=== PATIENT | male | born 1945 | race Caucasian/White ===

== ENCOUNTER 2016-12-11 06:05 | Inpatient (IN) | payer MEDICARE, BC ==
[2016-12-11] MEDS ORDERED: Lactated Ringers 1,000 ML IV SCH (06:30)
[2016-12-11] MEDS ORDERED: Povidone-Iodine 10% Soln 118.25 ML Bottle ONE (06:53)
[2016-12-11] MEDS ORDERED: Lidocaine 0.5% 50 ML SDV ONE (07:15)
[2016-12-11] MEDS ORDERED: Lidocaine 1% PF 2 ML SDV INJECT ONE (07:27)
[2016-12-11] MEDS: Gentamicin 40 MG/ML 2 ML Vial ONE ×2 (07:52→09:40)
[2016-12-11] MEDS ORDERED: ceFAZolin 2 GM in Premix Bag 1 BAG IV ONE (08:00)
[2016-12-11] MEDS ORDERED: Ketamine 500 MG/5 ML MDV IV ONE (08:30)
[2016-12-11] MEDS ORDERED: fentaNYL 100 MCG/2 ML SDV ONE (08:39)
[2016-12-11] MEDS ORDERED: Midazolam 1 MG/ML 2 ML SDV ONE (08:39)
[2016-12-11] MEDS ORDERED: Propofol 200 MG/20 ML SDV ONE ×5 (08:39→10:51)
[2016-12-11] MEDS: Tranexamic Acid 1,000 MG in Sodium Chloride 0.9% 50 ML IV SCH ×2 (09:22→12:22)
[2016-12-11] MEDS ORDERED: Lactated Ringers 1,000 ML ONE (10:33)
[2016-12-11] MEDS ORDERED: Ropivacaine 49.25 ML, Ketorolac 30 MG, EPINEPHrine 0.5 MG, cloNIDine 80 MCG, Sodium Chl... INJECT SCH ×5 (11:30)
[2016-12-11] MEDS ORDERED: Docusate Sodium 100 MG Cap PO PRN (12:01)
[2016-12-11] MEDS ORDERED: Bisacodyl 5 MG Tab PO PRN (12:01)
[2016-12-11] MEDS ORDERED: Naloxone 0.4 MG/ML SDV IVPUSH PRN (12:01)
[2016-12-11] MEDS ORDERED: Ketorolac 30 MG/ML SDV IVPUSH PRN (12:01)
[2016-12-11] MEDS ORDERED: traMADol 50 MG Tab PO PRN (12:01)
[2016-12-11] MEDS ORDERED: Ondansetron 4 MG/2 ML SDV IVPUSH PRN (12:01)
[2016-12-11] MEDS ORDERED: Magnesium Hydroxide 400 MG/5 ML Susp 30 ML Cup PO PRN (12:01)
[2016-12-11] MEDS ORDERED: Aluminum Hydroxide/Magnesium Hydroxide/Simethicone Susp 30 ML Cup PO PRN (12:01)
[2016-12-11] MEDS ORDERED: Zolpidem 5 MG Tab PO PRN (12:01)
[2016-12-11] MEDS ORDERED: Sennosides 8.6 MG Tab PO PRN (12:01)
[2016-12-11] MEDS ORDERED: Morphine 2 MG/ML Syringe IVPUSH PRN (12:01)
[2016-12-11] MEDS ORDERED: diphenhydrAMINE 50 MG/ML SDV IVPUSH PRN (12:01)
--- NOTE | 2016-12-11 12:50 | CR ---
Right knee medial compartment hemiarthroplasty. Negative for post surgical purposes.
[2016-12-11] MEDS ORDERED: ceFAZolin 2 GM in Premix Bag 1 BAG IV SCH ×2 (13:00→14:00)
[2016-12-11] MEDS: Acetaminophen/oxyCODONE 325-5 MG Tab PO PRN ×2 (14:19→21:16)
[2016-12-11] MEDS ORDERED: Non-Formulary Medication 1 Each (Omeprazole [Omeprazole] 40 MG) PO PRN (15:08)
[2016-12-11] MEDS ORDERED: Albuterol 8 GM Inhaler INH PRN (15:08)
[2016-12-11] MEDS ORDERED: 50% Dextrose in Water 50 ML Syringe IV PRN (15:10)
[2016-12-11] MEDS ORDERED: Glucose Gel 15 GM in 37.5 GM Tube PO PRN (15:10)
--- NOTE | 2016-12-11 15:18 | PCM.CONS ---
H&P History of Present Illness - General Date of Service: 12/11/16 Admit Problem/Dx: Admission Diagnosis/Problem Admission Diagnosis/Problem Osteoarthritis Source of Information: Patient, Family, Old Records, RN Notes Reviewed History Limitations: Reports: No Limitations - History of Present Illness Initial Comments - Free Text/Narative: Brennen is a 71-year-old gentleman who I been asked to see today by Dr. Roe Rodgers for assistance in management following a right partial knee replacement surgery done earlier today. Patient has been having ongoing difficulty with pain in his right knee and on evaluation was found to have severe medial compartment arthritis. He's done well during the initial postoperative period, denies chest pain or pressure, dyspnea, nausea and vomiting and reports that his pain control thus far has been adequate. Right Knee Pain Score (Numeric/FACES): 2 - Related Data Allergies/Adverse Reactions: Allergies Allergy/AdvReac Type Severity Reaction Status Date / Time NOE Inhibitors Allergy Cough Verified 12/11/16 06:31 lisinopril Allergy Cough Verified 12/11/16 06:31 carvedilol AdvReac Diarrhea Verified 12/11/16 06:31 Home Medications: Home Meds Albuterol [Proair HFA] 2 puff INH Q4H PRN 12/09/14 [History] Glimepiride 4 mg PO BID 12/09/14 [History] Valsartan [Diovan] 80 mg PO DAILY 12/09/14 [History] metFORMIN [Glucophage] 1,000 mg PO BID 12/09/14 [History] Cinnamon 1,000 mg PO DAILY 01/31/15 [History] Milk Thistle 175 mg PO BID 01/31/15 [History] Aspirin [Adult Low Dose Aspirin EC] 81 mg PO DAILY 12/06/16 [History] Metoprolol Succinate 25 mg PO DAILY 12/06/16 [History] Pravastatin [Pravachol] 40 mg PO BEDTIME 12/06/16 [History] Omeprazole 40 mg PO DAILY PRN 12/11/16 [History] Past Medical History HEENT History: Reports: Cataract Cardiovascular History: Reports: High Cholesterol, Hypertension Respiratory History: Reports: Bronchitis, Recurrent, Sleep Apnea Other Respiratory History: uses inhaler periodically throughout the winter Gastrointestinal History: Reports: PUD Genitourinary History: Reports: Renal Calculus Other Genitourinary History: December 13 2014 had a kidney stone removed and stent put in for th 10mm stone to be lithotripsy to be done in [place] 02/08 Musculoskeletal History: Reports: Arthritis, Gout Other Musculoskeletal History: seeing ortho this week for surgical consult Endocrine/Metabolic History: Reports: Diabetes, Type II, Obesity/BMI 30+ Hematologic History: Reports: Blood Transfusion(s) Dermatologic History: Reports: Other (See Below) - Infectious Disease History Infectious Disease History: Reports: Measles - Past Surgical History HEENT Surgical History: Reports: Cataract Surgery Cardiovascular Surgical History: Reports: Percutaneous Transluminal Angioplasty Respiratory Surgical History: Reports: None GI Surgical History: Reports: Appendectomy, Colonoscopy Male Surgical History: Reports: Kidney Stone Extraction, Ureteral Stent Other Male Surgeries/Procedures: kidney stone removed 12/2014 Endocrine Surgical History: Reports: None Musculoskeletal Surgical History: Reports: Knee Replacement Dermatological Surgical History: Reports: None Social & Family History - Tobacco Use Smoking Status *Q: Former Smoker Years of Tobacco use: 15 Used Tobacco, but Quit: Yes Month Tobacco Last Used: July Second Hand Smoke Exposure: No - Caffeine Use Caffeine Use: Reports: Coffee - Alcohol Use Days Per Week of Alcohol Use: 4 Number of Drinks Per Day: 5 Total Drinks Per Week: 20 Date of Last Drink: 12/08/16 Time of Last Drink: 18:00 - Recreational Drug Use Recreational Drug Use: No H&P Review of Systems - Review of Systems: Review Of Systems: See Below General: Reports: No Symptoms Pulmonary: Reports: No Symptoms Cardiovascular: Reports: No Symptoms Gastrointestinal: Reports: No Symptoms Genitourinary: Reports: No Symptoms Musculoskeletal: Reports: Joint Pain Exam - Exam Exam: See Below - Vital Signs Vital Signs: Last Vital Signs Temp 98.4 F 12/11/16 13:15 Pulse 61 12/11/16 13:32 Resp 12 12/11/16 13:32 BP 146/77 H 12/11/16 13:32 Pulse Ox 99 12/11/16 13:32 Weight: 259 lb 14.412 oz - Exam Quality Assessment: DVT Prophylaxis General: Alert, Oriented, Cooperative, Mild Distress Neck: Supple, Trachea Midline, +2 Carotid Pulse wo Bruit Lungs: Clear to Auscultation, Normal Respiratory Effort Cardiovascular: Regular Rate, Regular Rhythm, Normal S1, Normal S2 Abdomen: Normal Bowel Sounds, Soft Extremities: Normal Pulses. No: Edema Consult PN Assessment/Plan Procedures: Procedures ASSAY OF AMYLASE (12/09/14) ASSAY OF HAPTOGLOBIN QUANT (02/03/15) ASSAY OF LIPASE (12/09/14) ASSAY OF SERUM POTASSIUM (02/03/15) BLOOD TRANSFUSION SERVICE (02/03/15) BLOOD TYPING SEROLOGIC ABO (11/29/16) BLOOD TYPING SEROLOGIC RH(D) (11/29/16) COMPATIBILITY TEST ANTIGLOB (02/03/15) COMPATIBILITY TEST SPIN (02/03/15) COMPLETE CBC AUTOMATED (11/29/16) COMPLETE CBC W/AUTO DIFF WBC (02/03/15) COMPREHEN METABOLIC PANEL (11/29/16) RAYMOND TEST DIRECT (02/03/15) CT ABD & PELVIS W/O CONTRAST (12/09/14) CT THORAX W/O DYE (03/15/15) CULTURE OTHR SPECIMN AEROBIC (11/29/16) EMERGENCY DEPT VISIT (02/03/15) EMERGENCY DEPT VISIT (02/03/15) EMERGENCY DEPT VISIT (12/13/14) GAIT TRAINING THERAPY (02/09/15) GLUCOSE BLOOD TEST (02/03/15) HEMOGLOBIN (02/03/15) HOT OR COLD PACKS THERAPY (03/07/15) LACTATE (LD) (LDH) ENZYME (02/03/15) MANUAL THERAPY 1/> REGIONS (03/07/15) METABOLIC PANEL TOTAL CA (02/03/15) POLYSOM 6/>YRS CPAP 4/> PARM (04/11/15) PT EVALUATION (02/09/15) RBC ANTIBODY SCREEN (11/29/16) ROUTINE VENIPUNCTURE (11/29/16) THER/PROPH/DIAG INJ SC/IM (12/09/14) THER/PROPH/DIAG IV INF ADDON (12/09/14) THER/PROPH/DIAG IV INF INIT (12/09/14) THERAPEUTIC ACTIVITIES (03/07/15) THERAPEUTIC EXERCISES (03/07/15) TISSUE EXAM BY PATHOLOGIST (02/03/15) TTE W/DOPPLER COMPLETE (12/10/13) TX/PRO/DX INJ NEW DRUG ADDON (12/09/14) URINALYSIS AUTO W/SCOPE (11/29/16) URINE CULTURE/COLONY COUNT (02/03/15) X-RAY EXAM OF KNEE 3 (11/29/16) Problem List Initiated/Reviewed/Updated: Yes My Orders last 24 hours: My Active Orders 12/11/16 15:08 Albuterol [Ventolin HFA] 2 puff INH Q4H PRN Omeprazole [Omeprazole] 40 mg PO DAILY PRN 12/11/16 15:10 Blood Glucose Check, Bedside [RC] QIDACANDBED Communication Order [RC] ASDIRECTED Diabetes Education [RC] Click to Edit Notify Provider [RC] PRN Dextrose 50% in Water 50 ml IV ONETIME PRN Dextrose [Glutose 15] 15 gm PO ONETIME PRN 12/11/16 15:15 Insulin Aspart [NovoLOG] See Protocol SUBCUT ASDIRECTED 12/11/16 16:30 GLUCOSE POC LAB TO COLLECT [POC] QIDACANDBED 12/11/16 21:00 GLUCOSE POC LAB TO COLLECT [POC] QIDACANDBED Glimepiride [Glimepiride] 4 mg PO BID Pravastatin [Pravachol] 40 mg PO BEDTIME metFORMIN [Glucophage] 1,000 mg PO BID 12/12/16 07:30 GLUCOSE POC LAB TO COLLECT [POC] QIDACANDBED 12/12/16 09:00 Metoprolol Succinate [Toprol XL] 25 mg PO DAILY Valsartan [Diovan] 80 mg PO DAILY 12/12/16 11:30 GLUCOSE POC LAB TO COLLECT [POC] QIDACANDBED 12/12/16 16:30 GLUCOSE POC LAB TO COLLECT [POC] QIDACANDBED 12/12/16 21:00 GLUCOSE POC LAB TO COLLECT [POC] QIDACANDBED 12/13/16 07:30 GLUCOSE POC LAB TO COLLECT [POC] QIDACANDBED 12/13/16 11:30 GLUCOSE POC LAB TO COLLECT [POC] QIDACANDBED 12/13/16 16:30 GLUCOSE POC LAB TO COLLECT [POC] QIDACANDBED 12/13/16 21:00 GLUCOSE POC LAB TO COLLECT [POC] QIDACANDBED 12/14/16 07:30 GLUCOSE POC LAB TO COLLECT [POC] QIDACANDBED 12/14/16 11:30 GLUCOSE POC LAB TO COLLECT [POC] QIDACANDBED 12/14/16 16:30 GLUCOSE POC LAB TO COLLECT [POC] QIDACANDBED 12/14/16 21:00 GLUCOSE POC LAB TO COLLECT [POC] QIDACANDBED 12/15/16 07:30 GLUCOSE POC LAB TO COLLECT [POC] QIDACANDBED 12/15/16 11:30 GLUCOSE POC LAB TO COLLECT [POC] QIDACANDBED 12/15/16 16:30 GLUCOSE POC LAB TO COLLECT [POC] QIDACANDBED 12/15/16 21:00 GLUCOSE POC LAB TO COLLECT [POC] QIDACANDBED 12/16/16 07:30 GLUCOSE POC LAB TO COLLECT [POC] QIDACANDBED 12/16/16 11:30 GLUCOSE POC LAB TO COLLECT [POC] QIDACANDBED 12/16/16 16:30 GLUCOSE POC LAB TO COLLECT [POC] QIDACANDBED 12/16/16 21:00 GLUCOSE POC LAB TO COLLECT [POC] QIDACANDBED 12/17/16 07:30 GLUCOSE POC LAB TO COLLECT [POC] QIDACANDBED 12/17/16 11:30 GLUCOSE POC LAB TO COLLECT [POC] QIDACANDBED 12/17/16 16:30 GLUCOSE POC LAB TO COLLECT [POC] QIDACANDBED 12/17/16 21:00 GLUCOSE POC LAB TO COLLECT [POC] QIDACANDBED 12/18/16 07:30 GLUCOSE POC LAB TO COLLECT [POC] QIDACANDBED 12/18/16 11:30 GLUCOSE POC LAB TO COLLECT [POC] QIDACANDBED 12/18/16 16:30 GLUCOSE POC LAB TO COLLECT [POC] QIDACANDBED 12/18/16 21:00 GLUCOSE POC LAB TO COLLECT [POC] QIDACANDBED 12/19/16 07:30 GLUCOSE POC LAB TO COLLECT [POC] QIDACANDBED 12/19/16 11:30 GLUCOSE POC LAB TO COLLECT [POC] QIDACANDBED 12/19/16 16:30 GLUCOSE POC LAB TO COLLECT [POC] QIDACANDBED 12/19/16 21:00 GLUCOSE POC LAB TO COLLECT [POC] QIDACANDBED 12/20/16 07:30 GLUCOSE POC LAB TO COLLECT [POC] QIDACANDBED 12/20/16 11:30 GLUCOSE POC LAB TO COLLECT [POC] QIDACANDBED 12/20/16 16:30 GLUCOSE POC LAB TO COLLECT [POC] QIDACANDBED 12/20/16 21:00 GLUCOSE POC LAB TO COLLECT [POC] QIDACANDBED 12/21/16 07:30 GLUCOSE POC LAB TO COLLECT [POC] QIDACANDBED 12/21/16 11:30 GLUCOSE POC LAB TO COLLECT [POC] QIDACANDBED 12/21/16 16:30 GLUCOSE POC LAB TO COLLECT [POC] QIDACANDBED 12/21/16 21:00 GLUCOSE POC LAB TO COLLECT [POC] QIDACANDBED 12/22/16 07:30 GLUCOSE POC LAB TO COLLECT [POC] QIDACANDBED 12/22/16 11:30 GLUCOSE POC LAB TO COLLECT [POC] QIDACANDBED Plan: ASSESSMENT AND RECOMMENDATIONS STATUS POST RIGHT PARTIAL KNEE REPLACEMENT-stable and doing well during the initial postoperative period -Postoperative care per orthopedic service MILD CONGESTIVE HEART FAILURE-stable with no evidence of significant cardiac compromise -Limited IV fluids as possible -Continue outpatient medical regimen TYPE 2 DIABETES MELLITUS -4 times a day glucometers -Continue outpatient medical regimen -Low-dose sliding scale NovoLog HYPERTENSION -Monitor blood pressure during hospital stay -Continue outpatient medical regimen OBSTRUCTIVE SLEEP APNEA -Use CPAP from home while hospitalized Requesting Provider: MONIQUE Date Consult Requested: 12/11/16 Reason for Consult: Postoperative medical management Patient History Reviewed: Yes Admission H&P Reviewed: Yes
[2016-12-11] MEDS: ceFAZolin 2 GM in Sodium Chloride 0.9% 50 ML IV SCH (15:43)
[2016-12-11] MEDS ORDERED: Pantoprazole 40 MG Tab.CR PO PRN (15:51)
[2016-12-11] MEDS: Insulin Aspart 100 Units/ML 3 ML Pen SUBCUT SCH ×2 (16:38→21:17)
[2016-12-11] MEDS: metFORMIN 500 MG Tab PO SCH (16:38)
--- NOTE | 2016-12-11 18:30 | OR ---
DATE OF PROCEDURE: 12/11/2016 PREOPERATIVE DIAGNOSIS: Right knee primary osteoarthritis. POSTOPERATIVE DIAGNOSIS: Right knee primary osteoarthritis. PROCEDURE: Right knee unicondylar medial knee arthroplasty. CORPORATE CLAIMS EXAMINER: CHELSEA Grigsby ANESTHESIA: Spinal plus conscious sedation. FLUID: Lactated Ringer solution. ESTIMATED BLOOD LOSS: 150 mL. COMPLICATIONS: None. SPECIMEN: None. DISCHARGE DISPOSITION: Stable to PACU. HISTORY AND INDICATIONS FOR THE PROCEDURE: The patient was seen preoperatively in the clinic. He had failed nonoperative treatment. Preoperative imaging confirmed the above- mentioned diagnosis. Risks and benefits of the procedure were explained to the patient. Informed consent was obtained. DETAILS OF PROCEDURE: The patient was seen preoperatively by myself and the anesthesia staff in the preoperative holding area, where the operative site was marked. He was brought to the operative suite by the anesthesia staff where spinal anesthesia and conscious sedation was administered. All extremities found to be well padded. A well-padded tourniquet was placed on his right thigh and his right thigh was placed up in the hip mcgee. He had padding under his left with adequate flexion for his hip flexors on the left. The right lower extremity was then prepped and draped in a sterile manner. Time-out was called identifying correct patient, correct procedure, the correct site, and antibiotics had been with an appropriate period of time. The right lower extremity was then exsanguinated and tourniquet was raised to 300 mmHg for 91 minutes and let down after cementing of the femoral component. The skin incision was made from the vastus medialis to the superior pole of the medial aspect of the patella. Linearly down just below the level of the joint line between the joint line and the tibial tubercle medially, a parapatellar arthrotomy was made in the same fashion. Bleeding was controlled with Bovie electrocautery as well as an Aquamant[employer] unit. DLPs were used for traction. The infrapatellar fat pad was removed. A part of the medial and anterior portion of the medial meniscus was then removed. The medial tibial plateau was visualized using Bovie electrocautery and retractors. Osteophytes were removed from the proximal tibia as well as osteotome was used in the medial and lateral aspect of the intercondylar notch to remove any other osteophytes to prevent impingement. After this was performed, our cutting guide was then applied to the leg, which was an extramedullary guide with the clamp. This was then pinned in place. We then made our vertical cut. Just at the medial aspect of the anterior cruciate ligament insertion, I did measure with the hook how far back to be drill with saw and then marked this on the saw blade. I then thought that my horizontal cut was too deep, I placed a 2-mm chamfer and then made the cut as well. After this had been performed, please note that there was a #1 spoon used during placement of the cutting block. I then removed the cutting block, I felt that my cut was slightly too far lateral on the posterior aspect and then even this measured to be an F tibia. Posterior and anterior cruciate ligaments were visualized, intact, and had good stability throughout range of motion. We then used our drill to drill the intramedullary johnnie in the distal femur. I then drilled and placed my intramedullary johnnie. This was 1 cm anterior to the intercondylar notch on its medial aspect. After that johnnie had been placed, I then marked the midline of the medial femoral condyle and then placed my femoral guide attaching into the johnnie. I then drilled my 4 mm and 6 mm holes. I then removed this, I then applied an 0 spigot and then reamed with an 0 spigot. I then checked my flexion and extension gaps with my tibial trial in place, with the femoral component in place. This showed a 4 mm in flexion and I was unable to get a guide and 20 degrees of flexion. I then used a number #4 spigot, which again was a little bit tight, so I touched it about half way down with a #5 spigot. After removing some osteophytes on the inferior aspect of the femur, we then subtle on this size. I then prepared the tibia by placing the hook in the back and then applying the tibial base plate with the guide from my sawtooth, a cutter for the tibia. I then used the saw and then removed that guide and then removed any extra bone. I then applied my tibial cutting guide and removed the posterior aspect of the femur as well as reaming the anterior femur, I did remove a small portion of bone on the superior aspect that had been reamed, the anterior aspect had been reamed, and this was to allow for better tracking. We then inserted all of our trial components and I felt that a 4 fit at that time. We then removed all components and then copiously irrigated with saline. I removed more of the medial meniscus at that time. I dried our surfaces and then I applied our tibial F base plate with cement taking care to go from posterior to anterior in my tamping motion and then removed any extra cement. We inserted a femoral trial component and then a #4 insert and then allowed the cement to dry in approximately 30 degrees of flexion with force. After drying, we then removed any extra cement and copiously irrigated with saline. I then drilled holes again in the femoral cortex and then applied cement and then applied our femoral component again allowing it to dry. We then let down the tourniquet at 91 minutes. I then copiously irrigated with saline. We removed any extra cement and then we inserted a 4 trial, which provided excellent stability. We then copiously irrigated with saline and then inserted a #4 mobile bearing tibial implant. This provided excellent stability throughout and full range of motion. Anterior and posterior cruciate ligament stability was intact and they were visualized to be in good condition. We then irrigated again, we applied our local anesthetic, and then closed with one #5 Ethibond interrupted followed by a watertight closure with 0 [id number] sutures followed by 2-0 Vicryl subcutaneous sutures, followed by skin ilia, followed by sterile dressing. The patient was then transferred to hospital bed and taken to the PACU in stable condition. Onofre Rodgers DO /[id number]
[2016-12-11] MEDS ORDERED: Pravastatin 20 MG Tab PO SCH (21:00)
[2016-12-11] MEDS ORDERED: Aspirin 325 MG Tab.EC PO SCH (21:00)
[2016-12-11] MEDS ORDERED: Glimepiride 2 MG Tab PO SCH (21:00)
[2016-12-11] MEDS ORDERED: Non-Formulary Medication 1 Each (Metformin [Glucophage] 1,000 MG) PO SCH (21:00)
[2016-12-11] MEDS ORDERED: Non-Formulary Medication 1 Each (Pravastatin [Pravachol] 40 MG) PO SCH (21:00)
[2016-12-11] MEDS ORDERED: Non-Formulary Medication 1 Each (Glimepiride [Glimepiride] 4 MG) PO SCH (21:00)
[2016-12-12] MEDS: ceFAZolin 2 GM in Sodium Chloride 0.9% 50 ML IV SCH ×2 (00:10→08:24)
[2016-12-12] MEDS: Sodium Chloride 0.9% 10 ML Syringe FLUSH SCH ×2 (00:18→08:22)
[2016-12-12] MEDS: Acetaminophen/oxyCODONE 325-5 MG Tab PO PRN ×3 (01:05→10:49)
[2016-12-12 06:55] VITALS: BP 146/80
[2016-12-12] MEDS ORDERED: Glimepiride 2 MG Tab PO SCH (08:00)
[2016-12-12] MEDS: metFORMIN 500 MG Tab PO SCH (08:36)
[2016-12-12] MEDS ORDERED: Metoprolol Succinate 25 MG Tab.ER PO SCH (09:00)
[2016-12-12] MEDS ORDERED: Aspirin 325 MG Tab.EC PO SCH (09:00)
[2016-12-12] MEDS ORDERED: Non-Formulary Medication 1 Each (Valsartan [Diovan] 80 MG) PO SCH (09:00)
--- NOTE | 2016-12-12 10:04 | PCM.DCSUM1 ---
Discharge Summary - Hospital Course Free Text/Narrative:: Brennen is a pleasant 71 year old male who is status pod 1 of a right partial knee arthoroplasty. He is doing well. He denies any issues at this time. He is working with PT/OT and is doing well. His pain is controlled with oral pain medication. He is requesting to go home. - Discharge Data Discharge Date: 12/12/16 Discharge Disposition: Home, Self-Care 01 Condition: Good - Discharge Diagnosis/Problem(s) (1) Status post total right knee replacement SNOMED Code(s): 7463042920861 ICD Code: Z96.651 - PRESENCE OF RIGHT ARTIFICIAL KNEE JOINT Status: Acute Current Visit: Yes - Patient Summary/Data Consults: Consultations 12/11/16 12:01 Consult to Physician [CONS] Routine Consulting Provider: Angus Humphreys Call Completed to Consulting Physician: Yes OT Evaluation and Treatment [CONS] Routine Please Evaluate and Treat. OT Reason for Consult: Strengthening This query below is only for informational purposes and is not editable. PT Evaluation and Treatment [CONS] Routine Please Evaluate and Treat. PT Reason for Consult: Strengthening This query below is only for informational purposes and is not editable. - Patient Instructions Diet: Heart Healthy Diet Activity: Apply Ice, As Tolerated Driving: Do Not Drive Showering/Bathing: May Shower Wound/Incision Care: Keep Operative Site/Wound Site Clean and Dry, Change Dressing Daily Notify Provider of: Fever, Increased Pain, Swelling and Redness - Discharge Plan Prescriptions/Med Rec: Acetaminophen/oxyCODONE [Percocet 325-5 MG] 1 tab PO Q4H PRN #120 tablet PRN Reason: Pain Aspirin [Ecotrin] 325 mg PO BID #60 tab.ec Home Medications: Home Meds Albuterol [Proair HFA] 2 puff INH Q4H PRN 12/09/14 [History] Glimepiride 4 mg PO DAILY 12/09/14 [History] Valsartan [Diovan] 80 mg PO DAILY 12/09/14 [History] metFORMIN [Glucophage] 1,000 mg PO BID 12/09/14 [History] Cinnamon 1,000 mg PO DAILY 01/31/15 [History] Milk Thistle 175 mg PO BID 01/31/15 [History] Aspirin [Adult Low Dose Aspirin EC] 81 mg PO DAILY 12/06/16 [History] Metoprolol Succinate 25 mg PO DAILY 12/06/16 [History] Pravastatin [Pravachol] 40 mg PO BEDTIME 12/06/16 [History] Omeprazole 40 mg PO DAILY PRN 12/11/16 [History] Acetaminophen/oxyCODONE [Percocet 325-5 MG] 1 tab PO Q4H PRN #120 tablet [Rx] Aspirin [Ecotrin] 325 mg PO BID #60 tab.ec 12/12/16 [Rx] Referrals: Akiko Dhillon, POWER SYSTEMS ENGINEER [Nurse Practitioner] - (2 week recheck) - Discharge Summary/Plan Comment DC Time >30 min.: Yes Discharge Summary/Plan Comment: The patient will be discharged at this time. He is to follow up with ortho in 2 weeks. He is to continue with PT/OT. I prescribed him Percocet and ASA. He is to call at any time he has any other issues. - Patient Data Vitals - Most Recent: Last Vital Signs Temp 36.8 C 12/12/16 06:54 Pulse 75 12/12/16 08:36 Resp 16 12/12/16 06:54 BP 146/80 H 12/12/16 08:36 Pulse Ox 93 L 12/12/16 07:29 Weight - Most Recent: 259 lb 14.412 oz I&O - Last 24 hours: Intake & Output 12/11/16 12/12/16 12/12/16 22:59 06:59 14:59 Intake Total 1370 1050 290 Output Total 250 900 Balance 1120 150 290 Lab Results - Last 24 hrs: Laboratory Results - last 24 hr 12/12/16 12/12/16 Range/Units 05:47 05:47 WBC 11.1 H (4.5-11.0) K/uL RBC 3.44 L (4.30-5.90) M/uL Hgb 11.3 L (12.0-15.0) g/dL Hct 34.4 L (40.0-54.0) % MCV 100 H (80-98) fL MCH 33 H (27-31) pg MCHC 33 (32-36) % Plt Count 162 (150-400) K/uL Neut % (Auto) 65 (36-66) % Lymph % (Auto) 29 (24-44) % [place] % (Auto) 5 (2-6) % Eos % (Auto) 1 L (2-4) % Baso % (Auto) 0 (0-1) % Sodium 134 L (140-148) mmol/L Potassium 5.0 (3.6-5.2) mmol/L Chloride 104 (100-108) mmol/L Carbon Dioxide 24 (21-32) mmol/L Anion Gap 11.0 (5.0-14.0) mmol/L BUN 19 H (7-18) mg/dL Creatinine 1.3 (0.8-1.3) mg/dL Est Cr Clr Drug Dosing TNP Estimated GFR (MDRD) 54 L (>60) Glucose 155 H (74-106) mg/dL Calcium 7.5 L (8.5-10.1) mg/dL Total Bilirubin 0.4 (0.2-1.0) mg/dL AST 11 L (15-37) U/L ALT 11 L (12-78) U/L Alkaline Phosphatase 51 (46-116) U/L Total Protein 6.2 L (6.4-8.2) g/dL Albumin 3.0 L (3.4-5.0) g/dL Globulin 3.2 (2.3-3.5) g/dL Albumin/Globulin Ratio 0.9 L (1.2-2.2) Med Orders - Current: Current Medications Al Hydroxide/Mg Hydroxide (Mag-Al Plus) 30 ml PO Q4H PRN PRN Reason: Constipation Albuterol (Ventolin Hfa) 0 gm INH Q4H PRN PRN Reason: Shortness of Breath Aspirin (Ecotrin) 325 mg PO BID EZ Bisacodyl (Dulcolax) 10 mg PO DAILY PRN PRN Reason: Constipation Dextrose (Glutose 15) 15 gm PO ASDIRECTED PRN PRN Reason: Hypoglycemia Dextrose/Water (Dextrose 50% In Water) 50 ml IV ASDIRECTED PRN PRN Reason: Hypoglycemia Diazepam (Valium) 5 mg IVPUSH Q6H PRN PRN Reason: Spasms Diphenhydramine HCl (Benadryl) 25 mg IVPUSH Q4H PRN PRN Reason: Itching Docusate Sodium (Colace) 100 mg PO BID PRN PRN Reason: Constipation Glimepiride (Amaryl) 4 mg PO WITHBREAKFAST [facility] Last Admin: 12/12/16 08:36 Dose: 4 mg Lactated Ringer's (Ringers, Lactated) 1,000 mls @ 0 mls/hr IV ASDIRECTED [facility] PRN Reason: KVO Last Admin: 12/11/16 06:50 Dose: 25 mls/hr Insulin Aspart (Novolog) 0 unit SUBCUT ASDIRECTED [facility] PRN Reason: Protocol Last Admin: 12/11/16 21:17 Dose: 2 unit Ketorolac Tromethamine (Toradol) 15 mg IVPUSH Q6H PRN PRN Reason: Pain Magnesium Hydroxide (Milk Of Magnesia) 30 ml PO BID PRN PRN Reason: Constipation Metformin HCl (Glucophage) 1,000 mg PO BIDMEALS [facility] Last Admin: 12/12/16 08:36 Dose: 1,000 mg Metoprolol Succinate (Toprol Xl) 25 mg PO DAILY [facility] Last Admin: 12/12/16 08:36 Dose: 25 mg Morphine Sulfate (Morphine) 2 mg IVPUSH Q2H PRN PRN Reason: Pain Ondansetron HCl (Zofran) 8 mg IVPUSH Q4H PRN PRN Reason: Nausea/Vomiting Last Admin: 12/12/16 08:22 Dose: 8 mg Oxycodone/Acetaminophen (Percocet 325-5 Mg) 2 tab PO Q4H PRN PRN Reason: Pain Last Admin: 12/12/16 05:12 Dose: 2 tab Pantoprazole Sodium (Protonix) 40 mg PO DAILY PRN PRN Reason: REFLUX Pravastatin Sodium (Pravachol) 40 mg PO BEDTIME [facility] Last Admin: 12/11/16 21:16 Dose: 40 mg Senna (Senna) 8.6 mg PO BID PRN PRN Reason: Constipation Sodium Chloride (Saline Flush) 10 ml FLUSH DAILY [facility] Last Admin: 12/12/16 08:22 Dose: 10 ml Tramadol HCl (Ultram) 100 mg PO Q6H PRN PRN Reason: Pain Valsartan (Diovan) 80 mg PO DAILY [facility] Last Admin: 12/12/16 08:36 Dose: 80 mg Zolpidem Tartrate (Ambien) 5 mg PO BEDTIME PRN PRN Reason: Sleep Discontinued Medications Aspirin (Ecotrin) 325 mg PO BID [facility] Ropivacaine 49.25 ml/Ketorolac Tromethamine 30 mg/Epinephrine HCl 0.5 mg/ Clonidine HCl 80 mcg/ Sodium Chloride 48.45 ml 0 ml INJECT ASDIRECTED [facility] Stop: 12/11/16 11:31 Last Admin: 12/11/16 11:35 Dose: 97 syringe Fentanyl (Sublimaze) Confirm Administered Dose 100 mcg .ROUTE .STK-MED ONE Stop: 12/11/16 08:40 Gentamicin Sulfate (Gentamicin) Confirm Administered Dose 240 mg .ROUTE .STK- MED ONE Stop: 12/11/16 06:54 Last Admin: 12/11/16 09:40 Dose: 240 mg Cefazolin Sodium/Dextrose 2 gm (/ Premix) 50 mls @ 100 mls/hr IV ONETIME ONE Stop: 12/11/16 08:29 Last Admin: 12/11/16 08:56 Dose: 100 mls/hr Tranexamic Acid 1,000 mg/ (Sodium Chloride) 60 mls @ 240 mls/hr IV Q3H [facility] Stop: 12/11/16 11:14 Last Admin: 12/11/16 12:22 Dose: 240 mls/hr Lactated Ringer's (Ringers, Lactated) Confirm Administered Dose 1,000 mls @ as directed .ROUTE .[facility] ONE Stop: 12/11/16 10:34 Cefazolin Sodium 2 gm/ Sodium (Chloride) 50 mls @ 100 mls/hr IV Q8H [facility] Stop: 12/12/16 08:29 Last Admin: 12/12/16 08:24 Dose: 100 mls/hr Lidocaine HCl (Xylocaine-Mpf 0.5%) 0.3 ml .XX ASDIRECTED ONE Stop: 12/11/16 07:16 Last Admin: 12/11/16 13:29 Dose: Not Given Lidocaine HCl (Xylocaine-Mpf 1%) Confirm Administered Dose 5 ml .ROUTE .ST-MED ONE Stop: 12/11/16 07:22 Last Admin: 12/11/16 13:28 Dose: Not Given Lidocaine HCl (Xylocaine-Mpf 1%) 2 ml INJECT ONETIME ONE Stop: 12/11/16 07:28 Last Admin: 12/11/16 13:28 Dose: Not Given Midazolam HCl (Versed 1 Mg/Ml) Confirm Administered Dose 2 mg .ROUTE .STK-MED ONE Stop: 12/11/16 08:40 Naloxone HCl (Narcan) 0.1 mg IVPUSH ONETIME PRN PRN Reason: Oversedation Stop: 12/11/16 12:02 Povidone Iodine (Betadine 10% Soln) Confirm Administered Dose 1 ml .ROUTE .STK- MED ONE Stop: 12/11/16 06:54 Propofol (Diprivan 20 Ml) Confirm Administered Dose 200 mg .ROUTE .STK-MED ONE Stop: 12/11/16 08:40 Propofol (Diprivan 20 Ml) Confirm Administered Dose 200 mg .ROUTE .STK-MED ONE Stop: 12/11/16 09:45 Propofol (Diprivan 20 Ml) Confirm Administered Dose 200 mg .ROUTE .STK-MED ONE Stop: 12/11/16 10:03 Propofol (Diprivan 20 Ml) Confirm Administered Dose 200 mg .ROUTE .STK-MED ONE Stop: 12/11/16 10:25 Propofol (Diprivan 20 Ml) Confirm Administered Dose 200 mg .ROUTE .STK-MED ONE Stop: 12/11/16 10:52 - Exam General: Reports: alert, oriented Wound/Incisions: Reports: healing well, dressing dry and intact, drainage ( small amount of drainage on the distal portion of the incision. ) Neurological: Reports: no new focal deficit Psy/Mental Status: Reports: alert, normal affect, normal mood *Q Meaningful Use (DIS) - VTE *Q VTE Criteria *Q: - Stroke *Q Stroke Criteria *Q: - AMI *Q AMI Criteria *Q:
== END 2016-12-12 11:10 | disposition home or self-care (01) | DRG 470 ==
LOC: JP.SDS 06:05 → JP.MS 06:05 → EDSTATUS 07:30 → JP.MS 12:50
PROVIDERS: ADMIT Orthopaedic Surgery; ATTEND Orthopaedic Surgery
PROC: 0SRC0L9 Replacement of Right Knee Joint with Medial Unicondylar Synthetic Substitute, Cemented, Open Approach (ICD-10-PCS; principal; 2016-12-11)
DX: M17.11 Unilateral primary osteoarthritis, right knee (principal); I10 Essential (primary) hypertension; E11.9 Type 2 diabetes mellitus without complications; E78.5 Hyperlipidemia, unspecified; I44.7 Left bundle-branch block, unspecified; I25.10 Atherosclerotic heart disease of native coronary artery without angina pectoris; G47.33 Obstructive sleep apnea (adult) (pediatric); Z87.891 Personal history of nicotine dependence; N28.9 Disorder of kidney and ureter, unspecified; K27.9 Peptic ulcer, site unspecified, unspecified as acute or chronic, without hemorrhage or perforation; Z96.652 Presence of left artificial knee joint; Z79.82 Long term (current) use of aspirin; Z79.84 Long term (current) use of oral hypoglycemic drugs; Z88.8 Allergy status to other drugs, medicaments and biological substances; I50.9 Heart failure, unspecified
CPT/HCPCS: 36415; 73560-26-RT; 73560-RT; 80053; 82962; 85025; 94762; 97110-GP; 97116-GP; 97161-GP; 97165-GO; A9270-GY; C1713; C1776; J0690; J1580; J2250; J2405; J2704; J2795; J3010; J7050; J7120

== ENCOUNTER 2017-09-05 08:22 | Day surgery (SDC) | payer MEDICARE, BC ==
[2017-09-05] MEDS ORDERED: Sodium Chloride 0.9% 1,000 ML IV SCH (09:00)
[2017-09-05] MEDS ORDERED: Propofol 200 MG/20 ML SDV ONE (09:09)
[2017-09-05] MEDS ORDERED: fentaNYL 100 MCG/2 ML SDV ONE (09:09)
[2017-09-05] MEDS ORDERED: Midazolam 1 MG/ML 2 ML SDV ONE (09:10)
[2017-09-05 11:04] VITALS: BP 152/63
--- NOTE | 2017-09-05 15:41 | OR ---
DATE OF PROCEDURE: 09/05/2017 PROCEDURE: Colonoscopy. FINDINGS: 1. Approximately 1 cm polyp at ascending colon, completely removed using hot snare. 2. Transverse colon polyp, approximately 5 mm, completely removed using cold biopsy forceps. 3. Transverse colon polyp #2, approximately 5 mm, completely removed using cold biopsy forceps. 4. Sigmoid colon polyp, approximately 5 mm, completely removed using cold biopsy forceps. COMPLICATIONS: None. MANUFACTURING TECHNOLOGY PROFESSOR: None. ANESTHESIA: MAC. PREOPERATIVE DIAGNOSIS: History of polyps. POSTOPERATIVE DIAGNOSIS: History of polyps. RISKS: Risks, benefits, alternatives, and limitations including, but not limited to infection, bleeding, and perforation were explained to the patient, they wished to proceed. PROCEDURE IN DETAIL: The patient was placed in left lateral decubitus position. Digital rectal exam was performed without abnormality. The scope was introduced and advanced atraumatically to the ileocecal valve. The scope was brought back to the ascending, transverse, descending colon, and retroflexed. The aforementioned polyps were identified and completely removed. No evidence of old or new blood. No diverticulosis. No masses. The polyps were removed in the aforementioned fashion. The patient tolerated the procedure well. Benton Cummings MD /[id number]
== END 2017-09-05 10:50 | disposition home or self-care (01) ==
LOC: JP.SDS 08:22
PROVIDERS: ATTEND Surgery
DX: Z12.11 Encounter for screening for malignant neoplasm of colon (principal); D12.2 Benign neoplasm of ascending colon; D12.3 Benign neoplasm of transverse colon; D12.5 Benign neoplasm of sigmoid colon; K63.5 Polyp of colon; I25.10 Atherosclerotic heart disease of native coronary artery without angina pectoris; E11.22 Type 2 diabetes mellitus with diabetic chronic kidney disease; I12.9 Hypertensive chronic kidney disease with stage 1 through stage 4 chronic kidney disease, or unspecified chronic kidney disease; N18.9 Chronic kidney disease, unspecified; Z86.010 Personal history of colon polyps; Z88.8 Allergy status to other drugs, medicaments and biological substances
CPT/HCPCS: 45380; 45385; J2250; J2704; J3010; J7040; 88305

== ENCOUNTER 2020-04-10 09:44 | Emergency (ER) | payer MEDICARE, BC ==
[2020-04-10 10:30] VITALS: BP 141/70; PULSE 88
--- NOTE | 2020-04-10 10:37 | EDM.PDOC ---
ED HPI GENERAL MEDICAL PROBLEM - General Chief Complaint: Respiratory Problem Stated Complaint: COUGH, NIGHT SWEATS Time Seen by Provider: 04/10/20 10:15 Source of Information: Reports: Patient History Limitations: Reports: No Limitations - History of Present Illness INITIAL COMMENTS - FREE TEXT/NARRATIVE: 75-year-old male with cough, intermittent chills, wheezing for the past week. He is no worse today but decided if it was not getting better by this morning he was going to come in. He has an occasional dry cough, not febrile at this time and not short of breath. He has an inhaler at home and it does not seem to be helping. No sore throat, some mild nasal congestion is present. His regular doctor always gives him Zithromax for his bronchitis and it helps. Onset: Gradual Duration: Day(s): (7 days) Associated Symptoms: Reports: Cough, Fever/Chills, Other (Rhinitis) - Related Data Allergies Allergy/AdvReac Type Severity Reaction Status Date / Time NOE Inhibitors AdvReac Cough Verified 09/06/17 14:29 carvedilol AdvReac Diarrhea Verified 09/05/17 08:42 lisinopril AdvReac Cough Verified 09/06/17 14:29 Home Meds: Home Meds Albuterol [Proair HFA] 2 puff INH Q4H PRN 12/09/14 [History] Glimepiride 4 mg PO DAILY 12/09/14 [History] Valsartan [Diovan] 80 mg PO DAILY 12/09/14 [History] metFORMIN [Glucophage] 1,000 mg PO BID 12/09/14 [History] Cinnamon 1,000 mg PO DAILY 01/31/15 [History] Milk Thistle 175 mg PO BID 01/31/15 [History] Aspirin [Adult Low Dose Aspirin EC] 81 mg PO DAILY 12/06/16 [History] Metoprolol Succinate 25 mg PO DAILY 12/06/16 [History] Pravastatin [Pravachol] 40 mg PO BEDTIME 12/06/16 [History] Omeprazole 40 mg PO DAILY PRN 12/11/16 [History] allopurinoL [Zyloprim] 300 mg PO DAILY 09/03/17 [History] metroNIDAZOLE [Metrogel 1%] 1 applic TOP DAILY 09/03/17 [History] tadalafiL [Cialis] 10 mg PO ASDIRECTED PRN 09/03/17 [History] Past Medical History HEENT History: Reports: Cataract, Impaired Vision Cardiovascular History: Reports: High Cholesterol, Hypertension Respiratory History: Reports: Bronchitis, Recurrent, Sleep Apnea Other Respiratory History: uses inhaler periodically throughout the winter Gastrointestinal History: Reports: Colon Polyp, PUD Genitourinary History: Reports: Renal Calculus Other Genitourinary History: December 13 2014 had a kidney stone removed and stent put in for th 10mm stone to be lithotripsy to be done in [place] 02/08 Musculoskeletal History: Reports: Gout Other Musculoskeletal History: seeing ortho this week for surgical consult Endocrine/Metabolic History: Reports: Diabetes, Type II, Obesity/BMI 30+ Hematologic History: Reports: Anemia, Blood Transfusion(s) Oncologic (Cancer) History: Reports: Basal Cell Carcinoma Dermatologic History: Reports: Other (See Below) Other Dermatologic History: Rocaesa - Infectious Disease History Infectious Disease History: Reports: Chicken Pox - Past Surgical History HEENT Surgical History: Reports: Cataract Surgery Cardiovascular Surgical History: Reports: Percutaneous Transluminal Angioplasty Respiratory Surgical History: Reports: None GI Surgical History: Reports: Appendectomy, Colonoscopy Male Surgical History: Reports: Kidney Stone Extraction, Ureteral Stent Other Male Surgeries/Procedures: kidney stone removed 12/2014 Endocrine Surgical History: Reports: None Musculoskeletal Surgical History: Reports: Knee Replacement Other Musculoskeletal Surgeries/Procedures:: Right knne recent. Left knee done 2014 Oncologic Surgical History: Reports: None Dermatological Surgical History: Reports: None Social & Family History - Family History Family Medical History: Noncontributory - Tobacco Use Smoking Status *Q: Never Smoker - Caffeine Use Caffeine Use: Reports: Coffee - Recreational Drug Use Recreational Drug Use: No ED ROS GENERAL - Review of Systems Review Of Systems: See Below Constitutional: Denies: Fever, Chills HEENT: Reports: Rhinitis. Denies: Throat Pain Respiratory: Reports: Shortness of Breath, Wheezing, Cough. Denies: Sputum GI/Abdominal: Denies: Nausea, Vomiting Skin: Reports: Diaphoresis Neurological: Denies: Headache ED EXAM, GENERAL - Physical Exam Exam: See Below Exam Limited By: No Limitations General Appearance: Alert, No Apparent Distress Ears: Normal TMs Throat/Mouth: Normal Inspection Head: Atraumatic Respiratory/Chest: No Respiratory Distress, Wheezing (Diffuse inspiratory and expiratory wheezing is present) Cardiovascular: Regular Rate, Rhythm Course - Vital Signs Last Recorded V/S: Last Vital Signs Temp 99.7 F 04/10/20 10:15 Pulse 88 04/10/20 10:15 Resp 20 04/10/20 10:15 BP 141/70 H 04/10/20 10:15 Pulse Ox 95 04/10/20 10:15 - Orders/Labs/Meds Orders: Active Orders 24 hr Category Date Time Status CORONAVIRUS COVID-19, RUBEN Stat Lab 04/10/20 10:35 Received - Re-Assessments/Exams Free Text/Narrative Re-Assessment/Exam: 04/10/20 10:36 A COVID-19 test will be obtained and the patient will be placed on a 5-day course of Zithromax. Continue using his inhaler as needed if wheezing worsens and consider rechecking in 4 to 5 days if not improving satisfactorily. Return sooner if worsening, we will be in touch with him with Covid results. Departure - Departure Time of Disposition: 10:51 Disposition: Home, Self-Care 01 Clinical Impression: Bronchitis - Discharge Information Instructions: Acute Bronchitis, Adult, [id number] Referrals: James Méndez MD [Primary Care Provider] - Forms: ED Department Discharge Care Plan Goals: Take Zithromax as prescribed, use inhaler as needed for wheezing if worsening or return to the emergency room if concerns. Your coronavirus test will be available later this week. Quarantine until the result is available. Sepsis Event Note (ED) - Evaluation Sepsis Screening Result: No Definite Risk - Focused Exam Vital Signs: Vital Signs Temp Pulse Resp BP Pulse Ox 04/10/20 10:15 99.7 F 88 20 141/70 H 95 04/10/20 10:06 99.7 F 88 20 141/70 H 95 - My Orders Last 24 Hours: My Active Orders 04/10/20 10:35 CORONAVIRUS COVID-19, RUBEN Stat - Assessment/Plan Last 24 Hours: My Active Orders 04/10/20 10:35 CORONAVIRUS COVID-19, RUBEN Stat
== END 2020-04-10 10:53 | disposition home or self-care (01) ==
LOC: JP.ED 09:44
DX: U07.1 COVID-19 (principal); J40 Bronchitis, not specified as acute or chronic; E78.00 Pure hypercholesterolemia, unspecified; I10 Essential (primary) hypertension; E11.9 Type 2 diabetes mellitus without complications; E66.9 Obesity, unspecified; Z88.8 Allergy status to other drugs, medicaments and biological substances; Z79.899 Other long term (current) drug therapy; Z79.82 Long term (current) use of aspirin; Z68.37 Body mass index [BMI] 37.0-37.9, adult
CPT/HCPCS: 99283; U0002

== ENCOUNTER 2022-01-25 07:18 | Day surgery (SDC) | payer MEDICARE, BC ==
[2022-01-25] MEDS ORDERED: Midazolam 1 MG/ML 2 ML SDV ONE (07:38)
[2022-01-25] MEDS ORDERED: fentaNYL 100 MCG/2 ML SDV ONE (07:38)
[2022-01-25] MEDS ORDERED: Propofol 200 MG/20 ML SDV ONE (07:39)
[2022-01-25] MEDS ORDERED: Lactated Ringers 1,000 ML IV SCH (08:45)
[2022-01-25 10:59] VITALS: BP 133/61; PULSE 62
== END 2022-01-25 11:11 | disposition home or self-care (01) ==
LOC: JP.SDS 07:18
PROVIDERS: ATTEND Family Medicine
DX: Z12.11 Encounter for screening for malignant neoplasm of colon (principal); I11.0 Hypertensive heart disease with heart failure; G47.33 Obstructive sleep apnea (adult) (pediatric); I25.10 Atherosclerotic heart disease of native coronary artery without angina pectoris; I50.9 Heart failure, unspecified; E11.9 Type 2 diabetes mellitus without complications; E78.5 Hyperlipidemia, unspecified; Z88.8 Allergy status to other drugs, medicaments and biological substances; Z86.010 Personal history of colon polyps
CPT/HCPCS: 82947; G0105; J2250; J2704; J3010; J7120

== ENCOUNTER 2024-11-23 07:36 | Day surgery (SDC) | payer MEDICARE, BC ==
[~2024-11-23 07:36] MED LIST: Bupivacaine 0.5% 50 ML MDV ONE
[2024-11-23 08:17] LABS: CALCIUM 8.6 mg/dL (8.5-10.1); EST CRCL DRUG DOSING (CG) 28.5 mL/min; POTASSIUM,K 4.8 mmol/L (3.6-5.2)
[2024-11-23 08:18] LABS: ANION GAP 14.8 mmol/L (5.0-14.0)
[2024-11-23 08:22] LABS: INR 0.9; PROTHROMBIN TIME 9.7 sec (9.2-10.6)
[2024-11-23] MEDS: Nozin Nasal Sanitizer NASBOTH ONE (08:22)
[2024-11-23] MEDS: Lactated Ringers 1,000 ML IV SCH (08:39)
[2024-11-23] MEDS ORDERED: Rocuronium 50 MG/5 ML Vial ONE (09:10)
[2024-11-23] MEDS ORDERED: Propofol 200 MG/20 ML SDV ONE (09:10)
[2024-11-23] MEDS ORDERED: Ondansetron 4 MG/2 ML SDV ONE (09:10)
[2024-11-23] MEDS ORDERED: Glycopyrrolate 0.2 MG/ML 5 ML MDV ONE (09:10)
[2024-11-23] MEDS ORDERED: Neostigmine Methylsulfate 10 MG/10 ML MDV ONE (09:10)
[2024-11-23] MEDS ORDERED: Dexamethasone 4 MG/ML SDV ONE (09:10)
[2024-11-23] MEDS ORDERED: Succinylcholine 200 MG/10 ML MDV ONE (09:10)
[2024-11-23] MEDS ORDERED: Bupivacaine 0.5% 30 ML SDV ONE ×2 (09:11)
[2024-11-23] MEDS ORDERED: fentaNYL 250 MCG/5 ML SDV ONE (09:13)
[2024-11-23] MEDS: ceFAZolin 1 GM in Premix Bag 1 BAG IV ONE (09:22)
[2024-11-23 14:28] VITALS: BP 133/58; PULSE 60
== END 2024-11-23 14:29 | disposition home or self-care (01) ==
LOC: JP.SDS 07:36
PROVIDERS: ATTEND Specialist
DX: S43.431A Superior glenoid labrum lesion of right shoulder, initial encounter (principal); M75.41 Impingement syndrome of right shoulder; M19.011 Primary osteoarthritis, right shoulder; I10 Essential (primary) hypertension; E11.9 Type 2 diabetes mellitus without complications; Z88.0 Allergy status to penicillin; Z88.8 Allergy status to other drugs, medicaments and biological substances; X58.XXXA Exposure to other specified factors, initial encounter
CPT/HCPCS: 29822; 29824; 36415; 80048; 85610; 85730; A9270; C1713; J0330; J0665; J0689; J1100; J1596; J2405; J2704; J2710; J3010; J7120; 01630-QZ; J3490